=== PATIENT | male | born 1965 | race African-American/Black ===

== ENCOUNTER 2023-01-01 22:55 | Emergency (ER) | payer SELFPAY ==
[~2023-01-01] VITALS: Ht 182.9 cm; Wt 85.0 kg
[2023-01-01] MEDS ORDERED: KETOROLAC 30MG/ML VIAL IV STA (23:27)
[2023-01-01] MEDS ORDERED: SODIUM CHLORIDE 0.9% 1,000 ML IV ONE (23:30)
[2023-01-02] MEDS ORDERED: LORAZEPAM 2MG/ML CPJ IM ONE
[2023-01-02] MEDS ORDERED: HALOPERIDOL LACTATE 5MG/ML VIAL IM ONE
[2023-01-02 00:03] LABS: MEAN PLATELET VOLUME 7.9 fl (7.4-10.4); PLATELET 218 x1000/uL (130-400); RED BLOOD CELL COUNT 4.45 mill/uL (4.7-6.1)
[2023-01-02 00:05] LABS: BASOPHILS % 0.4 % (0.0-2.0); EOSINOPHILS % 1.9 % (0.0-5.0); HEMATOCRIT. 41.1 % (42.0-52.0); HEMOGLOBIN. 13.8 g/dL (14.0-18.0); LYMPHOCYTES % 50.8 % (20.0-50.0); MEAN CORPUSCULAR VOLUME 92.3 fL (80.0-94.0); MONOCYTES % 9.1 % (2.0-8.0); NEUTROPHILS % 37.8 % (40.0-76.0)
[2023-01-02 01:24] LABS: *AMPHETAMINES SCREEN URINE NEGATIVE (NEGATIVE); *BARBITURATES SCREEN URINE NEGATIVE (NEGATIVE); *BENZODIAZEPINES SCREEN URINE NEGATIVE (NEGATIVE); *COCAINE SCREEN URINE NEGATIVE (NEGATIVE); CANNABINOID URINE SCREEN NEGATIVE (NEGATIVE); METHADONE URINE SCREEN NEGATIVE (NEGATIVE); OPIATES URINE SCREEN NEGATIVE (NEGATIVE); PHENCYCLIDINE URINE SCREEN NEGATIVE (NEGATIVE)
[2023-01-02 01:45] LABS: CHLORIDE 117 mEq/L (98-107)
[2023-01-02 01:54] LABS: BETA HYDROXYBUTYRATE 0.1 mMol/L (0.0-0.3); ETHANOL BLOOD 226 mg/dL
[2023-01-02 06:20] VITALS: BP 116/69
== END 2023-01-02 06:23 | disposition home or self-care (01) ==
LOC: ER 22:55
DX: T51.0X1A Toxic effect of ethanol, accidental (unintentional), initial encounter (principal); X58.XXXA Exposure to other specified factors, initial encounter; E11.65 Type 2 diabetes mellitus with hyperglycemia
CPT/HCPCS: 36415; 80053; 80305; 80320; 82010; 85025; 96372; 99284; J1630; J2060; J7030; Z7610; G0480